=== PATIENT | female | born 1950 | race Caucasian/White ===

== ENCOUNTER 2020-02-27 05:26 | Inpatient (IN) | payer MEDICARE, OTHER ==
[~2020-02-27] VITALS: Ht 167.6 cm; Wt 69.9 kg
[2020-02-27 07:30] VITALS: BP 147/85
--- NOTE | 2020-02-27 07:30 | NUR ---
VETERINARY MANAGER NOTE: 69 YEAR OLD FEMALE BROUGHT INTO THE HOSPITAL ON A 5150 HOLD FOR GRAVE DISABILITY FROM [facility]. PER HOLD, PT WAS ARGUING WITH FAMILY. PT WAS SEEN DISORIENTED AND UNAWARE OF HER LOCATION. PT WAS HEARING VOICES AND UNABLE TO FOLLOW SIMPLE DIRECTIONS. PT WAS NOT ABLE TO PROVIDE INFORMATION WITH REGARDS TO THE LAST TIME SHE ATE OR DRANK ANYTHING. UPON FACE TO FACE PT IS A+OX3, ABLE TO MAKE NEEDS KNOWN. PT IS DISORGANIZED AND HAS POOR ATTENTION SPAN. PT HAS A WOUND ON HER LEFT GLUTEUS AND IS UNABLE TO GIVE SPECIFICS TO HOW THE WOUND OCCURRED. PT DENIES HISTORY OF PSYCHIATRIC TREATMENT AND/OR INPATIENT PSYCHIATRIC TREATMENT. PT STATES SHE WAS ADMITTED DUE TO AN ARGUMENT WITH FAMILY. PT DENIES DRUG ALLERGIES AND DENIES PSYCHIATRIC MEDICATIONS. PT IS AMBULATORY, CONTINENT AND INDEPENDENT WITH ADLS AND PO INTAKE. DENIES CURRENT SI AND DEPRESSION. DENIES AUDITORY AND VISUAL HALLUCINATIONS. REPORTS HISTORY OF HYPERTENSION, MEDICATION CONTROLLED DIABETES, HISTORY OF BREAST CA WITH RIGHT BREAST MASECTOMY AND HYPER LIPIDEMIA. MEDICATION RECONCILIATION NURSE IN ROOM. DR. TAVERAS AWARE OF ADMISSION. DAUGHTER NOTIFIED OF MOTHER'S ADMISSION
[2020-02-27 07:59] VITALS: BP 147/85
[2020-02-27] MEDS ORDERED: MAGNESIUM HYDROXIDE 30 ML UDC PO PRN (08:00)
[2020-02-27] MEDS ORDERED: TEMAZEPAM 7.5 MG CAPSULE PO PRN (08:00)
[2020-02-27] MEDS ORDERED: BLOOD SUGAR DIAGNOSTIC 1 EACH STRIP IN ONE (08:00)
[2020-02-27] MEDS ORDERED: MAG HYDROX/AL HYDROX/SIMETH 30 ML UDC PO PRN (08:00)
[2020-02-27] MEDS ORDERED: clonazePAM 0.5 MG TABLET PO PRN (08:00)
[2020-02-27] MEDS ORDERED: ACETAMINOPHEN 325 MG TABLET PO PRN (08:00)
[2020-02-27] MEDS ORDERED: EXEM25TA5 PO (08:50)
[2020-02-27] MEDS ORDERED: METF-440 PO (08:50)
[2020-02-27] MEDS ORDERED: ALEN70TA6 PO (08:50)
[2020-02-27] MEDS ORDERED: PALB125T PO (08:50)
[2020-02-27] MEDS ORDERED: SIMV-49 PO (08:50)
[2020-02-27] MEDS ORDERED: HYDR25TA4 PO (08:50)
[2020-02-27] MEDS ORDERED: PANT40TA49 PO (08:50)
[2020-02-27] MEDS ORDERED: LISI40TA4 PO (08:50)
--- NOTE | 2020-02-27 09:30 | NUR ---
GPS/RN PT' S DAUGHTER ZAKI NOTIFIED OF PT ADMISSION TO GPS
[2020-02-27 12:06] LABS: ALBUMIN 3.6 g/dL (3.4-5.0); BILIRUBIN,TOTAL 0.3 mg/dL (0.2-1.0); CALCIUM, SERUM 9.1 mg/dL (8.5-10.1); POTASSIUM 3.7 mmol/L (3.5-5.1); TOTAL PROTEIN, SERUM 7.8 g/dL (6.4-8.2)
[2020-02-27] MEDS ORDERED: LISI-603 PO (13:13)
--- NOTE | 2020-02-27 13:13 | NUR ---
GPS/RN CHANGES MADE TO PT'S HOME MEDS PER DAUGHTER ZAKI REQUEST. VERIFIED WITH PT WELL. PT IS WELL AWARE OF HER MEDS REGIMEN. FAMILY ADVISED TO BRING HOME MEDS(IMBRACE AND EXEMESTANE) TO THE HOSPITAL PHARMACY DOES NOT HAVE THOSE IN HOSPITAL FORMULARY
[2020-02-27] MEDS: OLANZAPINE 2.5 MG TABLET PO SCH ×3 (14:00→17:00)
--- NOTE | 2020-02-27 14:35 | NUR ---
RN NOTE: MEDICATION REFUSAL PT REFUSED INITIAL DOSE OF ZYPREXA. EDUCATED PT RE PURPOSE OF MEDICATION AND IMPORTANCE OF MEDICATION COMPLIANCE. PT CONT'D TO REFUSE X 3.
[2020-02-27 16:11] VITALS: BP 149/90
--- NOTE | 2020-02-27 16:20 | NUR ---
GPS/ARNP JUST BROUGHT THE HOME MEDS. MEDS INVENTORIED AND SUBMITTED TO THE PHARMACY
--- NOTE | 2020-02-27 16:30 | NUR ---
GPS/RN DR SAUNDERS AWARE OF ADMISSIONS AND WILL RECONCILE THE MEDICATIONS SHORTLY.
--- NOTE | 2020-02-27 17:24 | NUR ---
RN NOTE: MEDICATION REFUSAL PT REFUSED 1700 ZYPREXA. EDUCATED PT RE FUNCTION OF MEDICATION AND IMPORTANCE OF MEDICATION COMPLIANCE. PT CONT'D TO REFUSE X 3.
[2020-02-27] MEDS ORDERED: LISINOPRIL (20MG) 20 MG TABLET PO SCH (19:01)
[2020-02-27] MEDS: Exemestane 25 MG PO SCH (19:51)
[2020-02-27 20:01] VITALS: BP 160/85
[2020-02-27 20:15] VITALS: BP 160/85
[2020-02-27] MEDS: SIMVASTATIN 20 MG TABLET PO SCH ×2 (21:31→21:36)
--- NOTE | 2020-02-27 21:36 | NUR ---
GPS RN: PATIENT REFUSED ZOCOR MEDICATION.
[2020-02-28 07:09] LABS: CREATININE 0.9 mg/dL (0.6-1.3); POTASSIUM 3.9 mmol/L (3.5-5.1)
[2020-02-28 08:00] VITALS: BP_SYST 118; BP_SYST 150; BP_DIAS 67; BP_DIAS 98
[2020-02-28] MEDS ORDERED: CLONIDINE HCL 0.1 MG TABLET PO PRN (09:00)
[2020-02-28] MEDS: OLANZAPINE 2.5 MG TABLET PO SCH ×2 (09:00→16:58)
[2020-02-28] MEDS: ALENDRONATE 70 MG TABLET PO SCH ×2 (09:00→09:11)
[2020-02-28] MEDS: LISINOPRIL (20MG) 20 MG TABLET PO SCH ×2 (09:00→09:04)
[2020-02-28] MEDS: METFORMIN 500 MG TABLET PO SCH ×2 (09:00→09:03)
[2020-02-28] MEDS: PANTOPRAZOLE 40 MG TABLET.DR PO SCH ×2 (09:00→09:03)
[2020-02-28] MEDS: HYDROCHLOROTHIAZIDE 25 MG TABLET PO SCH (09:05)
[2020-02-28] MEDS: Exemestane 25 MG PO SCH (09:06)
--- NOTE | 2020-02-28 09:12 | NUR ---
RN NOTE: MEDICATION REFUSAL PT REFUSED AM ZYPREXA. EDUCATED PT RE IMPORTANCE OF MEDICATION COMPLIANCE. PT CONT'D TO REFUSE X 3.
--- NOTE | 2020-02-28 09:19 | NUR ---
PT REFUSED FOSAMAX THIS AM. WILL GIVE TOMORROW BEFORE BREAKFAST.
--- NOTE | 2020-02-28 10:00 | NUR ---
RN NOTE: MEDICATION REFUSAL PT REFUSED ALL PO MEDICATIONS THIS AM. ATTEMPTED MULTIPLE TIMES THROUGHOUT THE AM. PT CONT'D TO REFUSE. PT GAVE MULTIPLE REASONS EACH TIME FOR REFUSING HER AM MEDICATIONS AFTER BECOMING UPSET YESTERDAY AM FOR NOT RECEIVING THEM DUE TO BEING A NEW ADMIT AND MULTIPLE MEDICATIONS NOT PART OF [facility] FORMUL[facility]. WILL CONT TO MONITOR AND ATTEMPT LATER SCHEDULED MEDICATIONS.
[2020-02-28 16:00] VITALS: BP 162/97
--- NOTE | 2020-02-28 16:58 | NUR ---
RN NOTE: MEDICATION REFUSAL PT REFUSED 1700 DOSE ZYPREXA. ATTEMPTED TO EDUCATE PT RE IMPORTANCE OF MEDICATION REFUSAL. PT CON'TD TO REFUSE X 3. "I DON'T TAKE OR NEED THAT MEDICATION".
[2020-02-28] MEDS ORDERED: LISINOPRIL (20MG) 20 MG TABLET PO SCH (17:00)
[2020-02-28 20:00] VITALS: BP 136/74
--- NOTE | 2020-02-28 21:00 | NUR ---
RN NOTES: REFUSED SKIN ASSESSMENT PT. REFUSED WEEKLY SKIN ASSESSMNT AND PICTURE TAKEN , PER PT. STATES TO PRIMARY NURSE MY SKIN ALREADY CHECK BY DAY NURSE, I DONT WANT RECHECK AGAIN AT THIS TIME , ENCOURAGED RISKS AND BENEFITS EXPLAINED , BUT PT. STILL REFUSED , WILL CONTINUITY WITH CARE.
[2020-02-28] MEDS: SIMVASTATIN 20 MG TABLET PO SCH (22:00)
--- NOTE | 2020-02-28 22:12 | NUR ---
GPS RN: MEDICATION REFUSAL PATIENT REFUSED NIGHT SCHEDULE MEDICATION ZOCOR 40 MG PO . ENCOURAGED X3 RISKS AND BENEFITS EXPLINED , PT. STRONGLY REFUSED .
[2020-02-29] MEDS: ALENDRONATE 70 MG TABLET PO SCH (05:58)
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
[2020-02-29 08:00] VITALS: BP 150/91
[2020-02-29] MEDS: PANTOPRAZOLE 40 MG TABLET.DR PO SCH (09:00)
[2020-02-29] MEDS: Exemestane 25 MG PO SCH (09:00)
[2020-02-29] MEDS: OLANZAPINE 2.5 MG TABLET PO SCH ×2 (09:00→17:00)
[2020-02-29] MEDS: LISINOPRIL (20MG) 20 MG TABLET PO SCH (09:24)
[2020-02-29] MEDS: HYDROCHLOROTHIAZIDE 25 MG TABLET PO SCH (09:24)
[2020-02-29] MEDS: METFORMIN 500 MG TABLET PO SCH (09:24)
--- NOTE | 2020-02-29 14:39 | NUR ---
FAMILY CONTACT: SW contacted pts daughter Suni ([phone]) who provided SW with collateral information. Per daughter, pt does not have any mental health history and states her behaviors began 2 weeks ago. Daughter states pt was removed from the house due to pt arguing with family, becoming confused and disorganized. Daughter states that pts a year ago and states that pts symptoms may be related to family induced stress. Daughter states that she wishes for pt to return to her home once stable for discharge.
--- NOTE | 2020-02-29 14:50 | NUR ---
INITIAL DISCHARGE PLAN: Per daughter Suni ([phone]) she wishes for pt to return to her home [address] [facility] [address], once stable for discharge. KAVON will help form a safe and proper discharge in collaboration with .
--- NOTE | 2020-02-29 17:11 | NUR ---
RN NOTE: MEDICATION REFUSAL PT REFUSED 1700 ZYPREXA AND IBRANCE. EDUCATED PT RE IMPORTANCE OF MEDICATION COMPLIANCE. PT CONT'D TO REFUSE X 3. PT ALSO REFUSED WOUND ASSESSMENT WITH PRIMARY NURSE.
[2020-02-29] MEDS ORDERED: OLANZAPINE 10 MG VIAL IM STA (18:19)
[2020-02-29] MEDS ORDERED: LORAZEPAM INJ 2 MG/ML VIAL IM STA (18:19)
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
[2020-02-29] MEDS: SIMVASTATIN 20 MG TABLET PO SCH (22:00)
--- NOTE | 2020-02-29 22:41 | NUR ---
GPS RN NOTE: PT REFUSED 2200 MEDICATION ZOCOR 20MG 2TABS/40MG ORDERED. TEACHING PROVIDED TO PATIENT ON THE IMPORTANCE OF MEDICATION COMPLIANCE. WILL CONTINUE TO MONITOR.
--- NOTE | 2020-02-29 22:47 | NUR ---
GPS RN NOTE: PT REFUSED 2200 MEDICATION ZOCOR 20MG 2TABS/40MG ORDERED. MEDICATION WASTED PER POLICY. TEACHING PROVIDED TO PATIENT ON THE IMPORTANCE OF MEDICATION COMPLIANCE. WILL CONTINUE TO MONITOR
--- NOTE | 2020-03-01 06:32 | NUR ---
GPS RN CLOSING NOTES: PT AWAKE A/O X2-3, WITHDRAWN, PASSIVE, AMBULATING IN HALLWAY. SLEPT 8 HR THIS SHIFT. NO S/S OF DISTRESS. RESPIRATION EVEN AND UNLABORED WITH EQUAL RISE AND FALL OF THE CHEST ON ROOM AIR. ALL PT CARE NEEDS MET ANTICIPATED. WILL CONTINUE TO MONITOR AND ENDORSE TO AM SHIFT
[2020-03-01] MEDS: LISINOPRIL (20MG) 20 MG TABLET PO SCH (09:00)
[2020-03-01] MEDS: METFORMIN 500 MG TABLET PO SCH (09:00)
[2020-03-01] MEDS: HYDROCHLOROTHIAZIDE 25 MG TABLET PO SCH (09:00)
[2020-03-01] MEDS: PANTOPRAZOLE 40 MG TABLET.DR PO SCH (09:00)
[2020-03-01] MEDS: Exemestane 25 MG PO SCH (09:00)
[2020-03-01] MEDS: OLANZAPINE 2.5 MG TABLET PO SCH ×2 (09:00→17:00)
--- NOTE | 2020-03-01 09:06 | NUR ---
RN NOTE: MEDICATION REFUSAL PT REFUSED ALL AM MEDICATIONS. EDUCATED PT RE IMPORTANCE OF MEDICATION COMPLIANCE. DISCUSSED RIESE PROCESS. PT CONT'D TO REFUSE X 3.
--- NOTE | 2020-03-01 10:13 | NUR ---
WOUND CARE CONSULT: PT REFUSED SKIN ASSESSMENT. REVIEWED CHART, NURSING DOCUMENTATION AND PHOTO WHICH INDICATES LEFT BUTTOCK WOUND, PRESENT ON ADMISSION. PER PT REPORT TO NURSING STAFF, WOUND IS FROM PREVIOUS INJECTION OF CANCER MED. DR CHRISTIANO CAROLINA NOTIFIED OF SURGICAL CONSULT REQUEST. PT IS AMBULATORY. RECOMMENDATIONS MADE FOR WOUND CARE AND SKIN PROTECTION. DISCUSSED WITH NURSING STAFF. IN AGREEMENT WITH PLAN OF CARE.
--- NOTE | 2020-03-01 15:49 | NUR ---
RN-CO: SPOKE Kimi/ BATSHEVA FROM MENTAL HEALTH AND FOLLOWED UP IVONNEAIDEEOfelia GARNICA. SHE STATED SHE WILL CALL BACK.
--- NOTE | 2020-03-01 17:39 | NUR ---
RN NOTE: MEDICATION REFUSAL PT REFUSED 1700 MEDICATIONS INCLUDING ZYPREXA. EDUCATED PT RE IMPORTANCE OF MEDICATION COMPLIANCE. PT CONT'D TO REFUSE X 3 STATING "THEY ARE NOT THE CORRECT ONES"
--- NOTE | 2020-03-01 18:33 | NUR ---
RN NOTE- INCIDENT REPORT FILED BY THIS RN FROM PTS ELOPEMENT ATTEMPT AND BEHAVIOR LAST EVENING.
[2020-03-01] MEDS: SIMVASTATIN 20 MG TABLET PO SCH (21:23)
--- NOTE | 2020-03-01 21:23 | NUR ---
GPS RN NOTE: MEDICATION REFUSAL PT. REFUSED SCHEDULED 2200 ZOCOR 40 MG PO. EXPLAINED RISKS AND BENEFITS. OFFERED 3 X AND STILL REFUSED. WILL CONTINUE TO MONITOR.
[2020-03-02] MEDS: METFORMIN 500 MG TABLET PO SCH (09:00)
[2020-03-02] MEDS: LISINOPRIL (20MG) 20 MG TABLET PO SCH (09:00)
[2020-03-02] MEDS: Exemestane 25 MG PO SCH (09:00)
[2020-03-02] MEDS: HYDROCHLOROTHIAZIDE 25 MG TABLET PO SCH (09:00)
[2020-03-02] MEDS: PANTOPRAZOLE 40 MG TABLET.DR PO SCH (09:00)
[2020-03-02] MEDS: OLANZAPINE 2.5 MG TABLET PO SCH ×2 (09:00→16:44)
--- NOTE | 2020-03-02 09:26 | NUR ---
WOUND CARE: PT CONTINUES TO REFUSE SKIN ASSESSMENT.
--- NOTE | 2020-03-02 09:51 | NUR ---
GPS RN NOTE: DR TAVERAS NOTIFIED RIESE HEARING AT 15:30. PATIENT REFUSED AM MEDICATION NON COMPLIANT WITH TX, REFUSED SKIN ASSESSMENT, REFUSED VS, REFUSED BREAKFAST.
[2020-03-02] MEDS ORDERED: OLANZAPINE 10 MG VIAL IM SCH (13:00)
--- NOTE | 2020-03-02 14:27 | NUR ---
GROUP THERAPY: Pt was present but unable to participate due to psychosis. Pt did not respond to SW verbal cues.
[2020-03-02 20:00] VITALS: BP_SYST 131; BP_SYST 164; BP_DIAS 75; BP_DIAS 96
[2020-03-02 21:02] VITALS: BP 121/69
[2020-03-02] MEDS: SIMVASTATIN 20 MG TABLET PO SCH (21:17)
[2020-03-03 08:00] VITALS: BP 150/87
[2020-03-03] MEDS: PANTOPRAZOLE 40 MG TABLET.DR PO SCH (10:34)
[2020-03-03] MEDS: METFORMIN 500 MG TABLET PO SCH (10:34)
[2020-03-03] MEDS: OLANZAPINE 2.5 MG TABLET PO SCH ×2 (10:34→16:14)
[2020-03-03] MEDS: Exemestane 25 MG PO SCH (10:35)
[2020-03-03] MEDS: LISINOPRIL (20MG) 20 MG TABLET PO SCH (10:35)
[2020-03-03] MEDS: HYDROCHLOROTHIAZIDE 25 MG TABLET PO SCH (10:35)
[2020-03-03 19:48] VITALS: BP 143/81
[2020-03-03 20:15] VITALS: BP 143/81
--- NOTE | 2020-03-03 21:05 | NUR ---
GPS RN NOTE: REFUSED SKIN ASSESSMENT PATIENT IS EASILY IRRITABLE & AGITATED, REFUSED SKIN ASSESSMENT X3 DESPITE OF RISKS & BENEFITS EXPLANATIONS. WILL CONTINUE TO MONITOR.
[2020-03-03] MEDS: SIMVASTATIN 20 MG TABLET PO SCH (22:00)
--- NOTE | 2020-03-03 22:06 | NUR ---
RN NOTE: MEDICATION REFUSAL PT REFUSED 2200 MEDICATIONS ZOCOR 40 MG. EDUCATED PT RE IMPORTANCE OF MEDICATION COMPLIANCE. PT CONT'D TO REFUSE X 3 & COVERED HER FACE WITH THE BLANKET.
--- NOTE | 2020-03-04 06:04 | NUR ---
GPS RN NOTE PATIENT SLEPT WELL AT NIGHT. CONFUSED, UNCOOPERATIVE, ISOLATIVE, GUARDED, ATTEMPTED TO ENGAGE THE PATIENT IN A CONVERSATION WHILE AWAKE BUT PATIENT REFUSED TO TALK. REFUSED SNACKS. WILL CONTINUE TO MONITOR CLOSELY FOR ANY CHANGE OF CONDITION.
[2020-03-04 08:05] VITALS: BP 159/105
[2020-03-04] MEDS: PANTOPRAZOLE 40 MG TABLET.DR PO SCH (08:56)
[2020-03-04] MEDS: OLANZAPINE 2.5 MG TABLET PO SCH ×2 (08:56→17:15)
[2020-03-04] MEDS: METFORMIN 500 MG TABLET PO SCH (08:56)
[2020-03-04] MEDS: LISINOPRIL (20MG) 20 MG TABLET PO SCH (08:56)
[2020-03-04] MEDS: HYDROCHLOROTHIAZIDE 25 MG TABLET PO SCH (08:56)
[2020-03-04] MEDS: Exemestane 25 MG PO SCH (08:57)
--- NOTE | 2020-03-04 15:00 | NUR ---
gps environmental health physician: notes offered to do wound care on left buttock, but pt still refused. still unable to assess wound on her left buttock.
--- NOTE | 2020-03-04 15:45 | NUR ---
gps field sales engineer: plastic surgeon LISSETH JACKSON PERFORMANCE IMPROVEMENT ANALYST at bedside at this time, pt still refuses to have her left buttock wound assess and to do her wound treatment.
[2020-03-04 16:00] VITALS: BP 120/73
[2020-03-04 19:50] VITALS: BP 149/91
[2020-03-04 19:53] VITALS: BP 149/71
[2020-03-04] MEDS: SIMVASTATIN 20 MG TABLET PO SCH (22:00)
--- NOTE | 2020-03-04 22:36 | NUR ---
RN NOTE: MEDICATION REFUSAL PT REFUSED 2200 MEDICATIONS ZOCOR 40 MG. 2 NURSES TRIED TO ENCOURAGE THE PATIENT TO TAKE HER MEDICINE & EDUCATED PT RE IMPORTANCE OF MEDICATION COMPLIANCE. PT CONT'D TO REFUSE X 3. WILL CONTINUE TO MONITOR.
[2020-03-05 08:00] VITALS: BP 162/99
[2020-03-05] MEDS: Exemestane 25 MG PO SCH ×2 (09:00→09:29)
[2020-03-05] MEDS: PANTOPRAZOLE 40 MG TABLET.DR PO SCH ×2 (09:00→09:29)
[2020-03-05] MEDS: LISINOPRIL (20MG) 20 MG TABLET PO SCH ×2 (09:00→09:30)
[2020-03-05] MEDS: METFORMIN 500 MG TABLET PO SCH (09:30)
[2020-03-05] MEDS: HYDROCHLOROTHIAZIDE 25 MG TABLET PO SCH (09:30)
[2020-03-05] MEDS: OLANZAPINE 2.5 MG TABLET PO SCH ×2 (09:30→16:25)
--- NOTE | 2020-03-05 09:30 | NUR ---
GPS RN NOTE: MEDICATION Attempted to administer patient's morning meds, patient ignoring medications. Explained the importance of each medication and compliance x 3, patient continues to ignore. Will attempt again later.
[2020-03-05] MEDS: OLANZAPINE 10 MG VIAL IM PRN ×2 (10:24→10:42)
--- NOTE | 2020-03-05 10:30 | NUR ---
GPS RN NOTE: MEDICATION REFUSAL Prepared zyprexa IM, just in case patient does not take zyprexa PO meds. Patient agreed to take hydrochlorothiazide, metformin, and zyprexa PO as ordered. Patient insists on refusal to take pantoprazole 40 mg, exemestane 25 mg, and lisinopril 40 mg despite explanation of risks and benefits x 3. Wasted zyprexa injection, pantoprazole, exemestane, and lisinopril with uday Espinoza RN. Will continue to monitor patient.
--- NOTE | 2020-03-05 14:00 | NUR ---
GPS RN NOTE: WOUND CARE REFUSAL Patient sitting on bed, asked if I could do her wound dressing and explained its importance. Patient looks at me from head-to-toe continually, refused to answer. Explained its risks and benefits, patient continues to refuse to answer.
--- NOTE | 2020-03-05 15:51 | NUR ---
GPS RN: REFUSAL OF SHOWER AND NEW CLOTHES Offered patient to take a shower and wear clean gown and underwear x 3. Patient continually stares and refuses to answer. Will attempt again later.
[2020-03-05 16:00] VITALS: BP 154/71
[2020-03-05 20:52] VITALS: BP 164/111
--- NOTE | 2020-03-05 21:32 | NUR ---
GPS RN NOTE: Dr. Henderson saw pt, stated pt is actively preoccupied and mute and has been standing for more than 5 hours. Gave orders for Haldol 5mg PO TID. Order noted and carried out.
[2020-03-05] MEDS ORDERED: HALOPERIDOL LACTATE INJ 5 MG/ML VIAL IM ONE (22:00)
[2020-03-05] MEDS ORDERED: LORAZEPAM INJ 2 MG/ML VIAL IM ONE (22:00)
[2020-03-05] MEDS ORDERED: diphenhydrAMINE HCL 50 MG/ML VIAL IM ONE (22:00)
[2020-03-05] MEDS: HALOPERIDOL 5 MG TABLET PO SCH (22:32)
[2020-03-05] MEDS: SIMVASTATIN 20 MG TABLET PO SCH (22:32)
--- NOTE | 2020-03-05 23:00 | NUR ---
GPS RN NOTE: Pt was refusing Haldol and Zocor PO. MD aware w/ orders for Benadryl 25mg IM, Haldol 5mg/ml IM and Ativan 2mg/ml IM. Security and RN munitions handler supervisor notified and at pt's bedside. Pt refused IM medications and requested PO meds. Wishes noted and administered Haldol and Zocor PO as ordered. Will continue to monitor.
[2020-03-06 08:00] VITALS: BP 156/89
[2020-03-06] MEDS: LISINOPRIL (20MG) 20 MG TABLET PO SCH (08:40)
[2020-03-06] MEDS: HYDROCHLOROTHIAZIDE 25 MG TABLET PO SCH (08:40)
[2020-03-06] MEDS: BENZTROPINE MESYLATE (1 MG) 1 MG TABLET PO SCH ×3 (08:41→16:52)
[2020-03-06] MEDS: METFORMIN 500 MG TABLET PO SCH (08:41)
[2020-03-06] MEDS: PANTOPRAZOLE 40 MG TABLET.DR PO SCH (08:41)
[2020-03-06] MEDS: Exemestane 25 MG PO SCH (08:41)
[2020-03-06] MEDS: HALOPERIDOL 5 MG TABLET PO SCH ×3 (08:41→16:52)
--- NOTE | 2020-03-06 18:08 | NUR ---
Patient was calm and cooperative during the shift. She took all PO meds. All needs attended.
[2020-03-06 20:20] VITALS: BP 154/92
[2020-03-06] MEDS: SIMVASTATIN 20 MG TABLET PO SCH (21:41)
[2020-03-07] MEDS: ALENDRONATE 70 MG TABLET PO SCH ×3 (06:00→06:17)
[2020-03-07 08:00] VITALS: BP 161/91
[2020-03-07] MEDS: BENZTROPINE MESYLATE (1 MG) 1 MG TABLET PO SCH ×3 (08:19→17:40)
[2020-03-07] MEDS: HALOPERIDOL 5 MG TABLET PO SCH ×3 (08:19→17:40)
[2020-03-07] MEDS: METFORMIN 500 MG TABLET PO SCH (08:19)
[2020-03-07] MEDS: PANTOPRAZOLE 40 MG TABLET.DR PO SCH (08:20)
[2020-03-07] MEDS: LISINOPRIL (20MG) 20 MG TABLET PO SCH (08:20)
[2020-03-07] MEDS: HYDROCHLOROTHIAZIDE 25 MG TABLET PO SCH (08:20)
[2020-03-07] MEDS: Exemestane 25 MG PO SCH (08:20)
--- NOTE | 2020-03-07 08:45 | NUR ---
RN NOTE- PT REFUSED ALL MORNING MEDS. PT IS RIESED. THERE WAS NO IM COVERAGE FOR MED REFUSAL. DR TAVERAS NOTIFIED AND IT WAS FOUND THAT DR MCCOY HAD CHANGED PTS ZYPREXA 5 MG DOSE TO HALDOL ON 03/05 BUT DIDN'T ADD IM COVERAGE FOR MED REFUSAL. DR TAVERAS ORDERED HALDOL 5 MG TID IM IF PO MEDS REFUSED.
[2020-03-07] MEDS ORDERED: HALOPERIDOL LACTATE INJ 5 MG/ML VIAL IM ONE (09:00)
[2020-03-07] MEDS ORDERED: HALOPERIDOL LACTATE INJ 5 MG/ML VIAL IM PRN (10:00)
[2020-03-07 16:00] VITALS: BP 156/81
[2020-03-07 20:00] VITALS: BP 137/57
[2020-03-07] MEDS: SIMVASTATIN 20 MG TABLET PO SCH (21:33)
--- NOTE | 2020-03-07 21:42 | NUR ---
GPS RN NOTES: REFUSED ZOCOR PT REFUSED ZOCOR ORDERED. PT STATED, "YOU MESSED UP MY SLEEP!" PT INCREASED AGITATION. EXPLAIN RISKS AND BENEFITS. PT STILL REFUSED X3. CONTINUE TO MONITOR.
[2020-03-08 08:00] VITALS: BP 153/106
[2020-03-08] MEDS: BENZTROPINE MESYLATE (1 MG) 1 MG TABLET PO SCH ×3 (08:00→16:51)
[2020-03-08] MEDS: METFORMIN 500 MG TABLET PO SCH (08:00)
[2020-03-08] MEDS: PANTOPRAZOLE 40 MG TABLET.DR PO SCH (08:00)
[2020-03-08] MEDS: LISINOPRIL (20MG) 20 MG TABLET PO SCH (08:00)
[2020-03-08] MEDS: HYDROCHLOROTHIAZIDE 25 MG TABLET PO SCH (08:00)
[2020-03-08] MEDS: HALOPERIDOL 5 MG TABLET PO SCH ×3 (08:00→16:51)
[2020-03-08] MEDS: Exemestane 25 MG PO SCH (08:07)
--- NOTE | 2020-03-08 09:00 | NUR ---
RN NOTE- PT ALERT CALM, ORIENTED TO PERSON PLACE. MED COMPLIANT PO INTAKE GOOD. DENIES SI HI AH VH, CONFUSED AT TIMES, MORE INTERACTIVE
--- NOTE | 2020-03-08 13:00 | NUR ---
KAVON INDIVIDUAL INTERVENTION: SW met with patient today and discussed discharge planning. Patient shared with this SW that she wants to go home and is feeling anxious about being in the hospital. SW provided empathy and understanding and psychoeducation about hospitalization and safety. Patient was understanding and was able to set positive goals about her mental health.
--- NOTE | 2020-03-08 14:10 | NUR ---
RN NOTE- SET UP ZOOM MTG W PT AND FAMILY. TOLD THEM THAT SHE WAS REFUSING SKIN TX ON SACRUM. FAMILY INSISTED ON HER ALLOWING US TX. PAPERHANGER ASSISTANT WENT IN (PT REQUESTED FEMALE RN) . DRESSING CHANGE. SMALL ERYTHEMATOUS AREA,. NO SX INFECTION. REFUSED PHOTO FOR CHART. DRY DRESSING APPLIED AFTER CLEANSED W NS. TOLERATED WELL.
[2020-03-08 16:00] VITALS: BP 132/79
[2020-03-08 20:11] VITALS: BP 143/93
[2020-03-08] MEDS: SIMVASTATIN 20 MG TABLET PO SCH (21:13)
--- NOTE | 2020-03-08 21:13 | NUR ---
GPS RN NOTES: REFUSED ZOCOR PT REFUSED ZOCOR ORDERED. PT STATED, "THAT NOT WHAT I TAKE!" PT INCREASED AGITATION. EXPLAIN RISKS AND BENEFITS. PT STILL REFUSED X3. CONTINUE TO MONITOR.
[2020-03-09 08:00] VITALS: BP 133/76
[2020-03-09] MEDS: BENZTROPINE MESYLATE (1 MG) 1 MG TABLET PO SCH ×3 (08:36→17:53)
[2020-03-09] MEDS: PANTOPRAZOLE 40 MG TABLET.DR PO SCH (08:36)
[2020-03-09] MEDS: METFORMIN 500 MG TABLET PO SCH (08:36)
[2020-03-09] MEDS: HALOPERIDOL 5 MG TABLET PO SCH ×3 (08:36→17:53)
[2020-03-09] MEDS: LISINOPRIL (20MG) 20 MG TABLET PO SCH (08:37)
[2020-03-09] MEDS: HYDROCHLOROTHIAZIDE 25 MG TABLET PO SCH (08:37)
[2020-03-09] MEDS: Exemestane 25 MG PO SCH (08:46)
--- NOTE | 2020-03-09 09:31 | NUR ---
FAMILY CONTACT: KAVON spoke with patient's daughter Suni ([phone]) regarding discharge plan and provided updates on how the patient is currently doing. Suni stated that she will tow picker the patient and take her back home once she is ready for discharge.
[2020-03-09 16:00] VITALS: BP 141/95
[2020-03-09 19:49] VITALS: BP 129/93
[2020-03-09 20:00] VITALS: BP 129/93
[2020-03-09] MEDS: SIMVASTATIN 20 MG TABLET PO SCH (22:00)
--- NOTE | 2020-03-09 22:03 | NUR ---
GPS RN NOTES: REFUSED ZOCOR PT REFUSED ZOCOR ORDERED. PT STATED, " I DON'T WANT IT & KEPT HER EYES CLOSED." EXPLAIN RISKS AND BENEFITS. PT STILL REFUSED X3. CONTINUE TO MONITOR.
--- NOTE | 2020-03-10 06:53 | NUR ---
GPS RN NOTE PATIENT SLEPT INTERMITTENTLY AT NIGHT. SNACK WAS OFFERED BUT PT. REFUSED & ASKED FOR WATER ONLY. CLEAN GOWNS GIVEN TO THE PATIENT BUT PT. REFUSED TO TAKE SHOWER. ALL NEEDS MET. WILL ENDORSE TO AM RN FOR CONTINUITY OF CARE.
[2020-03-10 08:00] VITALS: BP 128/75
[2020-03-10] MEDS: HYDROCHLOROTHIAZIDE 25 MG TABLET PO SCH (08:25)
[2020-03-10] MEDS: METFORMIN 500 MG TABLET PO SCH (08:25)
[2020-03-10] MEDS: BENZTROPINE MESYLATE (1 MG) 1 MG TABLET PO SCH ×3 (08:25→16:46)
[2020-03-10] MEDS: PANTOPRAZOLE 40 MG TABLET.DR PO SCH (08:25)
[2020-03-10] MEDS: LISINOPRIL (20MG) 20 MG TABLET PO SCH (08:26)
[2020-03-10] MEDS: HALOPERIDOL 5 MG TABLET PO SCH ×2 (08:26→16:55)
[2020-03-10] MEDS: Exemestane 25 MG PO SCH (08:27)
[2020-03-10] MEDS ORDERED: HALOPERIDOL DECANOATE IM 100 MG/ML AMPUL IM ONE (10:30)
--- NOTE | 2020-03-10 13:33 | NUR ---
DISCHARGE NOTE: Patient will be discharged back home [address] [facility] [address] with her daughter Suni ([phone]). Suni will be providing transportation for the patient today back home at 4PM. Patient is aware and agreeable with discharge plan. Patient is alert and oriented times 4 and presents with euthymic mood and congruent affect. Patient denies suicidal or homicidal ideation. Patient will be following up with her primary care physician Dr. Ilan Hurtado [address] [facility] [address] [address] ([phone]) and has an appointment scheduled on 02/14/20 at 11:40AM via telehealth and will refer the patient for outpatient psychiatry and monitor the patients psychotropic medications. Patient is referred to [facility] program to see Dr. Hernandez [address] [place] [address] ([phone]). Patient is also provided with the [facility] [address], [place] [address] ([phone]). Addendum: 03/11/20 at 0910 by STEPHANI WEINER Discharge was cancelled due to patient refusing to leave at the time of discharge. Patient is not ready for discharge at this time.
--- NOTE | 2020-03-10 14:17 | NUR ---
Dr. Hernandez gave an order to D/C hold and D/C home and to follow up with psych and medical doctors.
[2020-03-10 16:00] VITALS: BP 130/76
--- NOTE | 2020-03-10 16:30 | NUR ---
By the time that the daughter was in the lobby to diamond picker the pt., pt. doesn't want to go. Pt. became aphasic and doesn't want to talk. Dr. Hernandez made aware and rescinded the discharge order and put back pt. on hold. Addendum: 03/10/20 at 1651 by TROY BEATTY RN Pt. on marco antonio.
[2020-03-10 19:43] VITALS: BP 148/97
[2020-03-10 20:00] VITALS: BP 148/97
--- NOTE | 2020-03-10 20:05 | NUR ---
GPS RN NOTE: OPENING NOTE RECEIVED PT. STANDING NEXT TO THE GPS ENTRANCE DOOR & FOCUSED ON GOING HOME, EXPLAINED TO THE PT. THAT SHE WAS ABOUT TO GO HOME TODAY DURING THE DAY TIME & HER DAUGHTER WAS HERE TO PICK HER UP BUT PT. REFUSED TO GO HOME & DAUGHTER DECIDED FOR HER TO STAY AT GPS UNIT UNTIL SHE IS READY TO GO HOME. BUT PATIENT REFUSED TO GO BACK TO HER ROOM AT THIS TIME, WILL REPROACH TO REDIRECT HER AGAIN. A & O X 2-3, QUIET, REFUSES TO ANSWERS QUESTIONS AT THIS TIME, EASILY AGITATED/IRRITABLE, UNCOOPERATIVE, DISHEVELED, PARANOID, DISORGANIZED, GUARDED, ISOLATIVE, WITHDRAWN, REALITY ORIENTATION PROVIDED. NO S/S DISTRESS NOTED AT THIS TIME, DENIES SI/HI AT THIS TIME, BED IN LOW LOCKED POSITION. AMBULATORY/STEADY. ENCOURAGED PT. TO VERBALIZE FEELING OR CONCERN, WILL CONTINUE MONITORING Q15 MIN FOR SAFETY, MOOD AND BEHAVIOR.
--- NOTE | 2020-03-10 20:20 | NUR ---
GPS RN NOTE PATIENT WALKED BACK TO HER ROOM QUIETLY & RESTING IN HER BED. REFUSED SNACKS & WATER AT THIS TIME. WATER PITCHER & CUPS PROVIDED TO THE PATIENT ON NIGHT STAND. WILL CONTINUE TO MONITOR FOR ANY CHANGES.
[2020-03-10] MEDS: SIMVASTATIN 20 MG TABLET PO SCH (22:00)
--- NOTE | 2020-03-10 22:11 | NUR ---
GPS RN NOTES: REFUSED ZOCOR PT REFUSED ZOCOR ORDERED. PT STATED, " I DON'T NEED IT & KEEP NODDING HER HEAD SAYING NO," WHILE EXPLAINED RISKS AND BENEFITS. PT STILL REFUSED X3. CONTINUE TO MONITOR.
--- NOTE | 2020-03-11 05:02 | NUR ---
GPS RN NOTE: CHECKED ON THE PATIENT & ASKED HER IF SHE NEEDS ANYTHING. PT. REQUESTED TO GET ICE WATER, OFFERED HER CLEAN GOWN BUT PT. STATED," MY GOWN IS CLEAN, I DON'T NEED ANOTHER ONE NOW." PT. REFUSED TO SHOWER AT THIS TIME. WILL CONTINUE TO MONITOR FOR ANY CHANGES.
[2020-03-11 08:00] VITALS: BP 150/77
[2020-03-11] MEDS: PANTOPRAZOLE 40 MG TABLET.DR PO SCH (08:37)
[2020-03-11] MEDS: HALOPERIDOL 5 MG TABLET PO SCH (08:37)
[2020-03-11] MEDS: HYDROCHLOROTHIAZIDE 25 MG TABLET PO SCH (08:37)
[2020-03-11] MEDS: METFORMIN 500 MG TABLET PO SCH (08:37)
[2020-03-11] MEDS: BENZTROPINE MESYLATE (1 MG) 1 MG TABLET PO SCH ×2 (08:37→12:31)
[2020-03-11 08:38] VITALS: BP 150/77
[2020-03-11] MEDS: LISINOPRIL (20MG) 20 MG TABLET PO SCH (08:38)
[2020-03-11] MEDS: Exemestane 25 MG PO SCH (09:36)
--- NOTE | 2020-03-11 11:15 | NUR ---
COORDINATION OF CARE: KAVON spoke with and faxed patient's referral packet to Jazmyn at [facility] for psychiatric services and therapy (ph: [phone] fax: [phone]). Addendum: 03/11/20 at 1408 by STEPHANI WEINER KAVON called and spoke with Jazmyn who stated that she will contact the patient post discharge with appointment date.
[2020-03-11] MEDS ORDERED: DIVALPROEX SODIUM 250 MG TABLET.DR PO SCH (13:00)
--- NOTE | 2020-03-11 14:07 | NUR ---
FAMILY CONTACT: SW spoke with patient's daughter, Suni ([phone]) regarding patient's discharge plan for today. Suni is agreeable with discharging the patient back home today and will be providing [employer] transportation due to not being able to come pickle pumper the patient herself today back home at 3PM.
--- NOTE | 2020-03-11 14:07 | NUR ---
DISCHARGE NOTE: Patient will be discharged back home [address] [facility] [address] with her daughter Suni ([phone]). Suni will be providing [employer] transportation due to not being able to come coal picker the patient herself today back home at 3PM. Patient is aware and agreeable with discharge plan. Patient is alert and oriented times 4 and presents with euthymic mood and congruent affect. Patient denies suicidal or homicidal ideation. Patient will be following up with her primary care physician Dr. Ilan Hurtado [address] [facility] [address] ([phone]) and has an appointment scheduled on 02/14/20 at 11:40AM via telehealth and will refer the patient for outpatient psychiatry and monitor the patients psychotropic medications. Patient is referred to [facility] to see Dr. Hernandez [address] [facility], [place] [address] ([phone]) and Jazmyn coordinator will reach patient to provide first appointment information. Patient is also provided with the [facility] [address], [place] [address] ([phone]).
--- NOTE | 2020-03-11 15:10 | NUR ---
COMMUNITY DEVELOPMENT OFFICER NOTE: 70 YEAR OLD FEMALE DISCHARGED HOME IN STABLE CONDITION. PT A+OX3, VSS, AFEBRILE NO SOB NOTED. PT DENIES CURRENT SI/HI. EDUCATED PT TO GO TO THE NEAREST ER OR CALL 911 IF THESE SYMPTOMS OCCUR. PT COMPLIANT WITH PO MEDICATIONS. PT TO FOLLOW UP WITH VIAL GAUGER, DR. AURE ROSARIO, AND PSYCHIATRIST, DR. TAVERAS, WITHIN ONE WEEK OF DISCHARGE. MEDICATIONS RECONCILED WITH DR. SAUNDERS AND DR. TAVERAS. DISCHARGE AND EXITCARE GIVEN TO PT AND EXPLAINED TO PT. PT TO COMPLY WITH MEDICATION SCHEDULE POST DISCHARGE. HOLD D/C'D. PT LEFT THE UNIT VIA WHEELCHAIR TO [employer] SCHEDULE BY PT'S DAUGHTER ZAKI. PT LEFT THE UNIT AT 1510.
== END 2020-03-11 15:15 | disposition home or self-care (01) | DRG 885 ==
LOC: GPS 05:26
PROVIDERS: ADMIT Psychiatry & Neurology Psychiatry; ATTEND Student in an Organized Health Care Education/Training Program
DX: F29 Unspecified psychosis not due to a substance or known physiological condition (principal); F20.9 Schizophrenia, unspecified; Z85.3 Personal history of malignant neoplasm of breast; I10 Essential (primary) hypertension; E11.9 Type 2 diabetes mellitus without complications; C50.919 Malignant neoplasm of unspecified site of unspecified female breast; Z91.19 Patient's noncompliance with other medical treatment and regimen; Z91.14 Patient's other noncompliance with medication regimen; F41.9 Anxiety disorder, unspecified; F32.9 Major depressive disorder, single episode, unspecified; Z92.21 Personal history of antineoplastic chemotherapy; S31.829A Unspecified open wound of left buttock, initial encounter; X58.XXXA Exposure to other specified factors, initial encounter; Y92.9 Unspecified place or not applicable; Z73.6 Limitation of activities due to disability; R45.1 Restlessness and agitation; F22 Delusional disorders
CPT/HCPCS: 36415; 80048-TC; 80053-TC; 80061-TC; 82962-TC; 84443-TC; 87081-TC; J1200; J1630; J1631; J2060; J3490